=== PATIENT | male | born 1960 ===

== ENCOUNTER 2017-01-24 12:00 | Emergency (ER) | payer OTHER ==
[2017-01-24 12:12] VITALS: TEMP 98.3; O2SAT 99
--- NOTE | 2017-01-24 12:37 | C.PDOC ---
History Of Present Illness 56 yr old male presents to the ER with complaints of painful rash along the left side of face for the past 3 days, associated with erythema, pain and itchiness. Patient denies fever, vision changes, chest pain, SOB, nausea, vomiting or headache. Time Seen by Provider: 01/24/17 12:13 Chief Complaint (Nursing): Eye Problem History Per: Patient History/Exam Limitations: no limitations Onset/Duration Of Symptoms: Days (3) Current Symptoms Are (Timing): Still Present Past Medical History Reviewed: Historical Data, Nursing Documentation, Vital Signs Vital Signs: Last Vital Signs Temp 98.3 F 01/24/17 13:30 Pulse 90 01/24/17 13:30 Resp 18 01/24/17 13:30 BP 150/90 01/24/17 13:30 Pulse Ox 99 01/24/17 13:30 - Medical History PMH: HTN Family History: States: No Known Family Hx - Social History Hx Alcohol Use: No Hx Substance Use: No Review Of Systems Except As Marked, All Systems Reviewed And Found Negative. Constitutional: Negative for: Fever Eyes: Negative for: Vision Change Cardiovascular: Negative for: Chest Pain Respiratory: Negative for: Shortness of Breath Gastrointestinal: Negative for: Nausea, Vomiting Skin: Positive for: Rash (Painful rash to the right side of face) Neurological: Negative for: Headache Physical Exam - Physical Exam Appears: Non-toxic, No Acute Distress Skin: Warm, Dry, Rash (Vesicular rash to the left side of forehead. No evidence of cellulitis) Head: Atraumatic, Normacephalic Eye(s): right: Normal Inspection, left: Other (Mild conjunctival injection, no foreign body seen, no dendritic lesion) Ear(s): Left: TM Erythema, Right: Normal Oral Mucosa: Moist Throat: Normal, No Erythema, No Exudate, No Drooling Neck: Normal, Normal ROM, Supple Chest: Symmetrical, No Tenderness Cardiovascular: Rhythm Regular, No Friction Rub, No Murmur Respiratory: Normal Breath Sounds, No Rales, No Rhonchi, No Stridor, No Wheezing Extremity: Normal ROM, No Swelling Neurological/Psych: Oriented x3, Normal Speech, Normal Motor Gait: Steady ED Course And Treatment O2 Sat by Pulse Oximetry: 99 (on RA) Pulse Ox Interpretation: Normal (RA) Progress Note: Patient to follow up with opthomologist in 1-2 days. Medical Decision Making Medical Decision Making: PLAN: * Tramadol PO * Acyclovir PO * Prednisone PO Disposition - Disposition Referrals: Bryan Brown MD [Staff Provider] - Disposition: HOME/ ROUTINE Disposition Time: 13:06 Condition: GOOD Additional Instructions: Follow up with the Eye doctor within 1-2 days without fail, Return if worsened. Prescriptions: Acyclovir [Zovirax] 800 mg PO 5XD #35 tab Ofloxacin Ophth 0.3% [Ocuflox Ophth 0.3%] 2 drop OS QID #1 bottle predniSONE [Prednisone] 20 mg PO BID #10 tab traMADol [Ultram] 50 mg PO Q6 PRN #20 tab PRN Reason: Pain Instructions: Shingles (ED) Print Language: MONGOLIAN - Clinical Impression Clinical Impression: Herpes zoster ophthalmicus - PA / RN CASE MANAGER / Resident Statement MD/DO has reviewed & agrees with the documentation as recorded. - Scribe Statement The provider has reviewed the documentation as recorded by the Aniibjunaid Ni All medical record entries made by the Aniibjunaid were at my direction and personally dictated by me. I have reviewed the chart and agree that the record accurately reflects my personal performance of the history, physical exam, medical decision making, and the department course for this patient. I have also personally directed, reviewed, and agree with the discharge instructions and disposition.
[2017-01-24 13:32] VITALS: BP 150/90; PULSE 90; RESP 18
== END 2017-01-24 13:30 | disposition home or self-care (01) ==
LOC: C.ER 12:00
DX: B02.30 Zoster ocular disease, unspecified (principal)